=== PATIENT | male | born 1925 | race Caucasian/White ===

== ENCOUNTER 2016-06-27 21:24 | Inpatient (IN) | payer MEDICARE ==
[~2016-06-27] VITALS: Ht 172.7 cm; Wt 72.6 kg
[2016-06-27 23:17] LABS: HEMOGLOBIN 14.9 gm/dl (14.0-17.5); RED BLOOD COUNT 4.54 M/UL (4.20-5.50); WHITE BLOOD COUNT 7.7 K/UL (4.5-11.0)
[2016-06-27 23:48] LABS: BUN/CREATININE RATIO 15 (0-10)
[2016-06-28] MEDS ORDERED: ARICEPT5 MG PO (02:47)
[2016-06-28 05:51] LABS: HEMOGLOBIN 13.4 gm/dl (14.0-17.5); RED BLOOD COUNT 4.12 M/UL (4.20-5.50); WHITE BLOOD COUNT 7.7 K/UL (4.5-11.0)
[2016-06-28 06:17] LABS: BUN/CREATININE RATIO 14 (0-10)
[2016-06-29 04:15] LABS: HEMOGLOBIN 12.8 gm/dl (14.0-17.5); RED BLOOD COUNT 3.96 M/UL (4.20-5.50); WHITE BLOOD COUNT 8.9 K/UL (4.5-11.0)
[2016-06-29 04:34] LABS: BUN/CREATININE RATIO 16 (0-10)
[2016-06-29] MEDS ORDERED: PROSCAR 5 MG TAB5 MG PO (13:12)
[2016-06-29] MEDS ORDERED: ASPIRIN81 MG PO (13:12)
[2016-06-29] MEDS ORDERED: DOXYCYCLINE HY100 M2 PO (13:13)
[2016-06-29] MEDS ORDERED: MIDODRINE HCL10 MG PO (13:13)
== END 2016-06-29 14:15 | disposition home or self-care (01) | DRG 603 ==
LOC: ER1 21:24 → MED SURG 4 06-28 00:30 → ZEROF 06-28 00:30 → MED SURG 4 06-28 02:06
PROVIDERS: Emergency Medicine; ADMIT Family Medicine
DX: L03.115 Cellulitis of right lower limb (principal); G91.2 (Idiopathic) normal pressure hydrocephalus; I95.1 Orthostatic hypotension; N40.1 Benign prostatic hyperplasia with lower urinary tract symptoms; R33.8 Other retention of urine; S80.212A Abrasion, left knee, initial encounter; S50.312A Abrasion of left elbow, initial encounter; W18.30XA Fall on same level, unspecified, initial encounter; Y92.098 Other place in other non-institutional residence as the place of occurrence of the external cause; S80.02XA Contusion of left knee, initial encounter; S50.02XA Contusion of left elbow, initial encounter; Z91.81 History of falling; G30.9 Alzheimer's disease, unspecified; F02.80 Dementia in other diseases classified elsewhere, unspecified severity, without behavioral disturbance, psychotic disturbance, mood disturbance, and anxiety; Z86.73 Personal history of transient ischemic attack (TIA), and cerebral infarction without residual deficits; Z85.820 Personal history of malignant melanoma of skin; E03.9 Hypothyroidism, unspecified; D75.89 Other specified diseases of blood and blood-forming organs
CPT/HCPCS: ECHO; 36415; 51702; 70450; 71010; 72170; 73080; 73564; 80048; 80053; 80202; 81001; 82550; 82553; 82607; 84443; 84484; 85025; 85027; 87040; 87070; 87077; 87086; 87186; 87205; 90715; 93005; 93306; 93880; 93971; 96374; 99285; J1650; J3370; J7030; J7070